=== PATIENT | female | born 1940 | race Caucasian/White ===

== ENCOUNTER 2019-06-11 10:35 | Inpatient (IN) | payer MEDICARE ==
[2019-06-11 11:12] LABS: ABSOLUTE BASOPHILS # (AUTO) 0.1 10^3/uL (0.0-0.2); ABSOLUTE EOSINOPHILS # (AUTO) 0.1 10^3/uL (0.0-0.6); ABSOLUTE LYMPHOCYTES (AUTO) 4.5 10^3/uL (0.5-4.7); ABSOLUTE MONOCYTES (AUTO) 0.6 10^3/uL (0.1-1.4); BASOPHILS % (AUTO) 0.8 % (0-2); EOSINOPHILS % (AUTO) 0.8 % (0-6); HEMOGLOBIN 9.3 g/dL (12.0-15.5); LYMPHOCYTES % (AUTO) 33.5 % (13-45); MEAN CORPUSCULAR HEMOGLOBIN 32.1 pg (27.0-33.4); MEAN CORPUSCULAR HGB CONC 34.6 g/dL (32.0-36.0); MEAN CORPUSCULAR VOLUME 93 fl (80-97); MONOCYTES % (AUTO) 4.7 % (3-13); PLATELET COUNT 201 10^3/uL (150-450); RED BLOOD COUNT 2.91 10^6/uL (3.72-5.28); RED CELL DISTRIBUTION WIDTH 13.3 % (11.5-14.0); SEGMENTED NEUTROPHILS % (AUTO) 60.2 % (42-78); TOTAL CELLS COUNTED % (AUTO) 100 %; WHITE BLOOD COUNT 13.3 10^3/uL (4.0-10.5)
[2019-06-11 11:22] LABS: ALBUMIN 3.7 g/dL (3.5-5.0); ALKALINE PHOSPHATASE 55 U/L (38-126); ANION GAP 5 (5-19); ASPARTATE AMINO TRANSFERASE 20 U/L (14-36); BILIRUBIN,DIRECT 0.3 mg/dL (0.0-0.4); BILIRUBIN,TOTAL 0.4 mg/dL (0.2-1.3); BLOOD UREA NITROGEN 52 mg/dL (7-20); CALCIUM 9.1 mg/dL (8.4-10.2); CARBON DIOXIDE 27 mmol/L (22-30); CHLORIDE 106 mmol/L (98-107); GLUCOSE 118 mg/dL (75-110); POTASSIUM 4.4 mmol/L (3.6-5.0); TOTAL PROTEIN 6.3 g/dL (6.3-8.2)
[2019-06-11 11:44] LABS: APPEARANCE,URINE CLEAR; BILIRUBIN,URINE NEGATIVE (NEGATIVE); COLOR,URINE YELLOW; GLUCOSE, URINE NEGATIVE (NEGATIVE); KETONES,URINE NEGATIVE (NEGATIVE); LEUKOCYTE ESTERASE,URINE TRACE (NEGATIVE); NITRITE,URINE NEGATIVE (NEGATIVE); PROTEIN,URINE NEGATIVE (NEGATIVE); URINE SPECIFIC GRAVITY 1.021; UROBILINOGEN,URINE NEGATIVE mg/dL (<2.0)
[2019-06-11] MEDS ORDERED: RINGERS SOLUTION,LACTATED 1,000 ML IV ONE (12:01)
[2019-06-11] MEDS ORDERED: FAMOTIDINE INJ/PF 20 MG/2 ML SDV IV ONE (12:02)
[2019-06-11] MEDS ORDERED: PANTOPRAZOLE SODIUM 40 MG VIAL IV ONE (12:02)
[2019-06-11 12:24] LABS: INTERNATIONAL RATION (INR) 0.99; PARTIAL THROMBOPLASTIN TIME 24.4 SEC (23.5-35.8); PROTHROMBIN TIME 13.1 SEC (11.4-15.4)
[2019-06-11 12:38] LABS: URINE AMPHETAMINES SCREEN NEGATIVE; URINE BARBITURATES SCREEN NEGATIVE; URINE COCAINE SCREEN NEGATIVE; URINE MARIJUANA (THC) SCREEN NEGATIVE; URINE METHADONE SCREEN NEGATIVE; URINE PHENCYCLIDINE SCREEN NEGATIVE
[2019-06-11 12:43] LABS: URINE BENZODIAZEPINES SCREEN UNCONFIRMED POSITIVE
--- NOTE | 2019-06-11 12:47 | ER Document Report ---
ED General - General Chief Complaint: Nausea/Vomiting Stated Complaint: NAUSEA/VOMITING Time Seen by Provider: 06/11/19 12:00 Mode of Arrival: Medic Information source: Patient, Relative Notes: 78-year-old female arrives from home after EMS was called because of vomiting and diarrhea and black vomitus black diarrhea according to her son. She has never had PUD or gastritis in the past. Patient points to her periumbilical area as being painful. Patient was cool and clammy upon EMS arrival. She was given 500 of lactated Ringer's in route. Her blood pressure is 121 systolic when I saw her in the room. She did not appear to be in any distress. Patient reports she had a lap 1990s with appendicitis and has a midline scar from umbilical area to her suprapubic area. This is well-healed. Patient was not witnessed to have any vomiting per EMS or staff here at the hospital. TRAVEL OUTSIDE OF THE [place] IN LAST 30 DAYS: No - HPI Onset: Yesterday Onset/Duration: Sudden, Waxing and waning Quality of pain: Achy Severity: Mild Pain Level: 1 Associated symptoms: Diarrhea, Nausea, Vomiting, Weakness - All family members son and daughter granddaughter are having upper respiratory coughing symptoms. Patient does take aspirin after having a stent placed in the . Patient does not take Aleve whenever she has headaches on a monthly basis. She last took it 2 weeks ago. Exacerbated by: Movement, Food Relieved by: Remaining still Similar symptoms previously: No Recently seen / treated by doctor: No - Related Data Allergies/Adverse Reactions: iodine Allergy (Verified 06/11/19 11:09) Penicillins Allergy (Verified 06/11/19 11:09) Home Medications: Toprol. Lisinopril. Xanax. Paroxetine. Piroxicam. Simvas tatin. ASpirin. Plavix. Levothyroxine. Detrol LA. Metoprolol Past Medical History - General Information source: Patient, Relative - Son and daughter and granddaughter in room - Social History Smoking Status: Unknown if Ever Smoked Cigarette use (# per day): No Chew tobacco use (# tins/day): No Smoking Education Provided: No Frequency of alcohol use: None Drug Abuse: None Lives with: Family Family History: Reviewed & Not Pertinent Patient has suicidal ideation: No Patient has homicidal ideation: No - Past Medical History Cardiac Medical History: Reports: Hx Coronary Artery Disease, Hx Hypercholesterolemia, Hx Hypertension Musculoskeletal Medical History: Reports Hx Arthritis Past Surgical History: Reports: Hx Abdominal Surgery, Hx Appendectomy Review of Systems - Review of Systems Constitutional: See HPI, Malaise, Weakness EENT: No symptoms reported Cardiovascular: See HPI, Dizziness, Lightheaded Respiratory: See HPI, Cough, Short of breath Gastrointestinal: See HPI, Abdominal pain, Diarrhea, Nausea, Vomiting Genitourinary: No symptoms reported Female Genitourinary: No symptoms reported Musculoskeletal: No symptoms reported Skin: No symptoms reported Hematologic/Lymphatic: No symptoms reported Neurological/Psychological: See HPI, Weakness Physical Exam - Vital signs Vitals: Resp Pulse Ox 22 H 95 06/11/19 11:00 06/11/19 11:00 Interpretation: Hypotensive - Patient had 102 systolic upon arrival - General General appearance: Alert In distress: None - HEENT Head: Normocephalic Eyes: Normal Conjunctiva: Normal Cornea: Normal Extraocular movements intact: Yes Eyelashes: Normal Pupils: PERRL Sinus: Normal Nasal: Normal Mouth/Lips: Normal Mucous membranes: Normal Pharynx: Normal Neck: Normal - Respiratory Respiratory status: No respiratory distress Chest status: Nontender Chest palpation: Normal - Cardiovascular Rhythm: Regular Heart sounds: Normal auscultation Murmur: No Friction rub: No Negra's crunch: No - Abdominal Inspection: Normal Distension: Distended Bowel sounds: Hypoactive Tenderness: Tender - Umbilical Organomegaly: No organomegaly - Rectal Tenderness: No Stool: Heme positive, Black Hemorrhoids: None - Genitourinary External exam: Normal - Extremities General upper extremity: Normal inspection General lower extremity: Normal inspection - Neurological Neuro grossly intact: Yes Cognition: Normal Orientation: AAOx4 Marielena Coma Scale Eye Opening: Spontaneous Marielena Coma Scale Verbal: Oriented Marielena Coma Scale Motor: Obeys Commands Marielena Coma Scale Total: 15 Speech: Normal Cranial nerves: Normal Cerebellar coordination: Normal Motor strength normal: LUE, RUE, LLE, RLE - Psychological Associated symptoms: Normal affect - Skin Skin Temperature: Warm Skin Moisture: Dry Skin Color: Pale Course - Vital Signs Vital signs: Temp Pulse Resp BP Pulse Ox 98.2 F 23 H 122/62 94 06/11/19 11:04 06/11/19 11:01 06/11/19 11:01 06/11/19 11:01 - Laboratory Result Diagrams: 06/11/19 10:15 06/11/19 10:15 Laboratory results interpreted by me: 06/11/19 06/11/19 06/11/19 10:15 10:15 10:15 WBC 13.3 H RBC 2.91 L Hgb 9.3 L Hct 27.0 L BUN 52 H Glucose 118 H Creatine Kinase 22 L Ur Leukocyte Esterase Urine Ascorbic Acid 06/11/19 11:17 WBC RBC Hgb Hct BUN Glucose Creatine Kinase Ur Leukocyte Esterase TRACE H Urine Ascorbic Acid 40 H - EKG Interpretation by Me EKG shows normal: Sinus rhythm Rate: Normal Critical Care Note - Critical Care Note Total time excluding time spent on procedures (mins): 90 Comments: Discussed this case with Dr. Thomas who advised calling [employer] SOFTWARE VERIFICATION ENGINEER Patt about this also is clear liquids only and then hold all n.p.o. after midnight for prepping Discharge - Discharge Clinical Impression: Anemia, GI bleeding Vomiting Qualifiers: Vomiting type: unspecified Vomiting Intractability: unspecified Nausea presence: with nausea Qualified Code(s): R11.2 - Nausea with vomiting, unspecified Abdominal pain Qualifiers: Abdominal location: periumbilical Qualified Code(s): R10.33 - Periumbilical pain Condition: Good Disposition: ADMITTED INPATIENT Admitting Provider: Martha (Hospitalist) Unit Admitted: Medical Floor Additional Instructions: Transfer this patient to floor
[2019-06-11 12:52] LABS: CREATINE KINASE MB 0.58 ng/mL (<4.55); TROPONIN I < 0.012 ng/mL
--- NOTE | 2019-06-11 13:26 | RADIOLOGY REPORT (SQ) ---
EXAM DESCRIPTION: CT ABD/PELVIS NO ORAL OR IV COMPLETED DATE/TIME: 06/11/2019 1:08 pm REASON FOR STUDY: vomiting COMPARISON: 02/10/2014. TECHNIQUE: CT scan of the abdomen and pelvis performed without intravenous or oral contrast. Images reviewed with lung, soft tissue, and bone windows. Reconstructed coronal and sagittal MPR images revi ewed. All images stored on PACS. All CT scanners at this facility use dose modulation, iterative reconstruction, and/or weight based d osing when appropriate to reduce radiation dose to as low as reasonably achievable (ALARA). [facility]: Dose Right [facility]: CareDose [facility]: Dose Right [facility]: Teradose 4D [facility]: Smart [employer] RADIATION DOSE: CT Rad equipment meets quality standard of care and radiation dose reduction techniq ues were employed. CTDIvol: 10.0 mGy. DLP: 485 mGy-cm.mGy. LIMITATIONS: None. FINDINGS: LOWER CHEST: No significant findings. No nodules or infiltrates. NON-CONTRASTED LIVER, SPLEEN, ADRENALS: Evaluation limited by lack of IV contrast. No identified sign ificant masses. PANCREAS: No masses. No peripancreatic inflammatory changes. GALLBLADDER: No identified stones by CT criteria. No inflammatory changes to suggest cholecystitis. RIGHT KIDNEY AND URETER: No suspicious masses. Assessment limited by lack of IV contrast. No signif icant calcifications. No hydronephrosis or hydroureter. LEFT KIDNEY AND URETER: No suspicious masses. Assessment limited by lack of IV contrast. No signifi cant calcifications. No hydronephrosis or hydroureter. AORTA AND RETROPERITONEUM: Heavy vascular calcifications. No aneurysm. Incidental duplicated inferi or vena cava. No retroperitoneal masses or adenopathy. BOWEL AND PERITONEAL CAVITY: No obvious masses or inflammatory changes. No free fluid. APPENDIX: Surgically absent. PELVIS, BLADDER, AND ABDOMINAL WALL:No abnormal masses. No free fluid. Bladder normal. BONES: No significant findings. Degenerative changes in the spine. OTHER: No other significant finding. IMPRESSION: NO SIGNIFICANT OR ACUTE PROCESS IN THE ABDOMEN OR PELVIS. COMMENT: Quality ID # [id number]: Final reports with documentation of one or more dose reduction techniques (e.g., Automated exposure control, adjustment of the mA and/or kV according to patient size, use of iterative reconstruction technique) TECHNICAL DOCUMENTATION: JOB ID: [id number] 2011 [employer]- All Rights Reserved Reading location - IP/workstation name: [email or web address]
--- NOTE | 2019-06-11 13:29 | RADIOLOGY REPORT (SQ) ---
EXAM DESCRIPTION: CHEST SINGLE VIEW COMPLETED DATE/TIME: 06/11/2019 1:13 pm REASON FOR STUDY: vomiting COMPARISON: None. EXAM PARAMETERS: NUMBER OF VIEWS: One view. TECHNIQUE: Single frontal radiographic view of the chest acquired. RADIATION DOSE: NA LIMITATIONS: None. FINDINGS: LUNGS AND PLEURA: No opacities, masses or pneumothorax. No pleural effusion. MEDIASTINUM AND HILAR STRUCTURES: No masses. Contour normal. HEART AND VASCULAR STRUCTURES: Heart normal in size. Normal vasculature. BONES: No acute findings. HARDWARE: None in the chest. OTHER: No other significant finding. IMPRESSION: NO ACUTE RADIOGRAPHIC FINDING IN THE CHEST. TECHNICAL DOCUMENTATION: JOB ID: [id number] 2010 [employer]- All Rights Reserved Reading location - IP/workstation name: [email or web address]
--- NOTE | 2019-06-11 14:31 | EKG REPORT ---
SEVERITY:- BORDERLINE ECG - SINUS RHYTHM PROBABLE LEFT ATRIAL ABNORMALITY BORDERLINE T WAVE ABNORMALITIES : Confirmed by: Oliver Arellano MD 11-Jun-2019 14:30:41
[2019-06-11] MEDS ORDERED: BISACODYL 5 MG TABEC PO ONE ×2 (14:59→20:00)
[2019-06-11] MEDS ORDERED: ALBUTEROL SULFATE 0.083% NEB 2.5 MG/3 ML AMPUL NEB PRN (15:42)
[2019-06-11] MEDS ORDERED: PROMETHAZINE HCL INJ 25 MG/1 ML VIAL IV PRN (15:42)
[2019-06-11] MEDS ORDERED: ONDANSETRON HCL INJ/PF 4 MG/2 ML SDV IV PRN (15:42)
[2019-06-11] MEDS ORDERED: POLYETHYLENE GLYCOL 3350 POWDER 17 GM/1 PACKET PO ONE (16:00)
[2019-06-11] MEDS ORDERED: HYDRALAZINE HCL INJ/PF 20 MG/1 ML SDV IV PRN (16:06)
--- NOTE | 2019-06-11 16:09 | PDOC H&P ---
History of Present Illness Patient complains of: abd pain, N/V History of Present Illness: ЕЛЕНА BURDICK is a 78 year old female with a past medical history significant for hypertension, hyperlipidemia, hypothyroidism, heart stent x1 (on aspirin and Plavix), anxiety, and tobacco dependence with continuous use who presented to the emergency department today with complaint of 2 days of nausea with vomiting beginning last night and abdominal pain today. She reports coffee-ground emesis and melena noted today. No prior history of GI bleeding. Evaluation in the emergency department reveals stable vital signs, mild leukocytosis (WBCs 13.3), mild anemia with a hemoglobin of 9.3, Normal coags, chemistry significant for BUN of 52 and creatinine 0.86, benign urinalysis, positive occult stool, UDS positive for benzodiazepines (prescribed). Chest x- ray is negative for acute findings. Abdominal CT without contrast was benign. She is provided IV fluids, Pepcid, Protonix, and referred to the hospitalist service for admission and management of upper GI bleeding. Surgery has been consulted for endoscopy. Past Medical History Cardiac Medical History: Reports: Coronary Artery Disease, Hyperlipidema, Hypertension Denies: Congestive Heart Failure, Myocardial Infarction Pulmonary Medical History: Reports: None EENT Medical History: Reports: None Neurological Medical History: Reports: None Endocrine Medical History: Reports: Hypothyroidism Denies: Diabetes Mellitus Type 2 Renal/ Medical History: Reports: None Malignancy Medical History: Reports: None GI Medical History: Reports: None Musculoskeltal Medical History: Reports: Arthritis Skin Medical History: Reports: None Psychiatric Medical History: Reports: General Anxiety Disorder Traumatic Medical History: Reports: None Hematology: Reports: None Infectious Medical History: Reports: None Past Surgical History Past Surgical History: Reports: Appendectomy Social History Information Source: Patient Lives with: Family Smoking Status: Current Every Day Smoker Cigarettes Packs Per Day: 0.5 Electronic Cigarette use?: No Frequency of Alcohol Use: None Hx Recreational Drug Use: No Hx Prescription Drug Abuse: No - Advance Directive Resuscitation Status: Full Code Surrogate healthcare decision maker:: Patient's son, Josse Burdick, Family History Family History: Reviewed & Not Pertinent Parental Family History Reviewed: Yes Children Family History Reviewed: Yes Sibling(s) Family History Reviewed.: Yes Medication/Allergy Home Medications: Famotidine [Pepcid 20 mg Tablet] 20 mg PO DAILY #12 tablet 02/10/14 Ondansetron HCl [Zofran 4 mg Tablet] 1 - 2 tab PO Q4H PRN #10 tablet 02/10/14 Allergies/Adverse Reactions: iodine Allergy (Verified 06/11/19 11:09) Penicillins Allergy (Verified 06/11/19 11:09) Review of Systems Constitutional: PRESENT: fatigue. ABSENT: chills, fever(s), headache(s), weight gain, weight loss Eyes: ABSENT: visual disturbances Ears: ABSENT: hearing changes Cardiovascular: ABSENT: chest pain, dyspnea on exertion, edema, orthropnea, palpitations Respiratory: ABSENT: cough, hemoptysis Gastrointestinal: PRESENT: abdominal pain, coffee ground emesis, nausea, vomit ing. ABSENT: constipation, diarrhea, hematemesis, hematochezia Genitourinary: ABSENT: dysuria, hematuria Musculoskeletal: ABSENT: joint swelling Integumentary: ABSENT: rash, wounds Neurological: ABSENT: abnormal gait, abnormal speech, confusion, dizziness, focal weakness, syncope Psychiatric: ABSENT: anxiety, depression, homidical ideation, suicidal ideation Endocrine: ABSENT: cold intolerance, heat intolerance, polydipsia, polyuria Hematologic/Lymphatic: ABSENT: easy bleeding, easy bruising Physical Exam Vital Signs: Temp Pulse Resp BP Pulse Ox 98.2 F 23 H 122/62 94 06/11/19 11:04 06/11/19 11:01 06/11/19 11:01 06/11/19 11:01 Intake & Output 06/10/19 06/11/19 06/12/19 06:59 06:59 06:59 Intake Total 1000 Balance 1000 Weight 77.111 kg General appearance: PRESENT: no acute distress, cooperative, well-developed, well-nourished Head exam: PRESENT: atraumatic, normocephalic Eye exam: PRESENT: conjunctiva pink, EOMI, PERRLA. ABSENT: scleral icterus Mouth exam: PRESENT: moist, tongue midline Respiratory exam: PRESENT: clear to auscultation linh, symmetrical, unlabored. ABSENT: rales, rhonchi, wheezes Cardiovascular exam: PRESENT: RRR, +S1, +S2, systolic murmur. ABSENT: diastolic murmur, rubs Pulses: PRESENT: normal dorsalis pedis pul Vascular exam: PRESENT: normal capillary refill GI/Abdominal exam: PRESENT: hypoactive bowel sounds, soft. ABSENT: distended, guarding, mass, organolmegaly, rebound, tenderness Rectal exam: PRESENT: heme (+) stool Extremities exam: PRESENT: full ROM. ABSENT: calf tenderness, clubbing, pedal edema Musculoskeletal exam: PRESENT: ambulatory Neurological exam: PRESENT: alert, awake, oriented to person, oriented to place, oriented to time, oriented to situation, CN II-XII grossly intact. ABSENT: motor sensory deficit Psychiatric exam: PRESENT: appropriate affect, normal mood. ABSENT: homicidal ideation, suicidal ideation Skin exam: PRESENT: dry, intact, warm. ABSENT: cyanosis, rash Results Laboratory Results: 06/11/19 10:15 06/11/19 10:15 06/11/19 06/11/19 06/11/19 10:15 10:15 10:15 WBC 13.3 H RBC 2.91 L Hgb 9.3 L Hct 27.0 L MCV 93 MCH 32.1 MCHC 34.6 RDW 13.3 Plt Count 201 Seg Neutrophils % 60.2 Sodium 138.3 Cancelled Potassium 4.4 Cancelled Chloride 106 Cancelled Carbon Dioxide 27 Cancelled Anion Gap 5 Cancelled BUN 52 H Cancelled Creatinine 0.86 Cancelled Est GFR ( Amer) > 60 Cancelled Est GFR (Non-Af Amer) Cancelled Glucose 118 H Cancelled Calcium 9.1 Cancelled Total Bilirubin 0.4 Cancelled AST 20 Cancelled Alkaline Phosphatase 55 Cancelled Total Protein 6.3 Cancelled Albumin 3.7 Cancelled Lipase 39.6 Urine Color Urine Appearance Urine pH Ur Specific Glendo Urine Protein Urine Glucose (UA) Urine Ketones Urine Blood Urine Nitrite Ur Leukocyte Esterase Urine WBC (Auto) Urine RBC (Auto) 06/11/19 11:17 WBC RBC Hgb Hct MCV MCH MCHC RDW Plt Count Seg Neutrophils % Sodium Potassium Chloride Carbon Dioxide Anion Gap BUN Creatinine Est GFR ( Amer) Est GFR (Non-Af Amer) Glucose Calcium Total Bilirubin AST Alkaline Phosphatase Total Protein Albumin Lipase Urine Color YELLOW Urine Appearance CLEAR Urine pH 6.0 Ur Specific Glendo 1.021 Urine Protein NEGATIVE Urine Glucose (UA) NEGATIVE Urine Ketones NEGATIVE Urine Blood NEGATIVE Urine Nitrite NEGATIVE Ur Leukocyte Esterase TRACE H Urine WBC (Auto) 3 Urine RBC (Auto) 1 06/11/19 06/11/19 10:15 10:15 Creatine Kinase 22 L CK-MB (CK-2) 0.58 Troponin I < 0.012 Impressions: Chest X-Ray 06/11/19 12:03 IMPRESSION: NO ACUTE RADIOGRAPHIC FINDING IN THE CHEST. Abdomen/Pelvis CT 06/11/19 12:41 IMPRESSION: NO SIGNIFICANT OR ACUTE PROCESS IN THE ABDOMEN OR PELVIS. Assessment and Plan - Diagnosis (1) GI bleeding Qualifiers: GI bleed type/associated pathology: unspecified gastrointestinal hemorrhage type Qualified Code(s): K92.2 - Gastrointestinal hemorrhage, unspecified Is this a current diagnosis for this admission?: Yes Plan: Likely upper GI bleed as patient reports black emesis. Patient is placed on clear liquids, n.p.o. after midnight. Surgery is consulted for endoscopy. Bowel prep per their discretion. IV Protonix twice daily. IV fluids. Antiemetics as needed. (2) Anemia Is this a current diagnosis for this admission?: Yes Plan: Acute blood loss anemia secondary to upper GI bleed. Hemoglobin 9.3. Evaluation of and management of GI bleed as above. Serial CBCs. Transfuse as necessary. (3) HTN (hypertension) Is this a current diagnosis for this admission?: Yes Plan: Currently NPO IV hydralazine as needed for blood pressure control. Resume home medication regiment once reconciled. (4) Anxiety Is this a current diagnosis for this admission?: Yes Plan: Continue home medication regiment (5) Hypothyroid Is this a current diagnosis for this admission?: Yes Plan: Continue home dose levothyroxine. (6) Tobacco dependence Is this a current diagnosis for this admission?: Yes Plan: Smoking cessation encouraged. Nicotine replacement therapies provided. - Time Time Spent with patient: 35 or more minutes Medications reviewed and adjusted accordingly: Yes Anticipated discharge: Home Within: within 48 hours
[2019-06-11 16:48] LABS: HEMATOCRIT 25.7 % (36.0-47.0); HEMOGLOBIN 8.8 g/dL (12.0-15.5); MEAN CORPUSCULAR HEMOGLOBIN 31.7 pg (27.0-33.4); MEAN CORPUSCULAR HGB CONC 34.4 g/dL (32.0-36.0); MEAN CORPUSCULAR VOLUME 92 fl (80-97); PLATELET COUNT 191 10^3/uL (150-450); RED BLOOD COUNT 2.78 10^6/uL (3.72-5.28); RED CELL DISTRIBUTION WIDTH 13.3 % (11.5-14.0); WHITE BLOOD COUNT 13.4 10^3/uL (4.0-10.5)
[2019-06-11] MEDS: NORMAL SALINE 1000 ML 1,000 ML IV PRN (17:24)
[2019-06-11] MEDS: PANTOPRAZOLE SODIUM 40 MG VIAL IV SCH (21:27)
[2019-06-11] MEDS ORDERED: KETOROLAC TROMETHAMINE INJ/PF 30 MG/1 ML SDV IV ONE (23:45)
[2019-06-11] MEDS: ZOLPIDEM TARTRATE 5 MG TABLET PO PRN (23:48)
[2019-06-12 00:26] LABS: HEMATOCRIT 22.8 % (36.0-47.0); MEAN CORPUSCULAR HGB CONC 34.5 g/dL (32.0-36.0); MEAN CORPUSCULAR VOLUME 93 fl (80-97); PLATELET COUNT 172 10^3/uL (150-450); RED BLOOD COUNT 2.46 10^6/uL (3.72-5.28); RED CELL DISTRIBUTION WIDTH 13.7 % (11.5-14.0); WHITE BLOOD COUNT 10.7 10^3/uL (4.0-10.5)
[2019-06-12 00:27] LABS: HEMOGLOBIN 7.9 g/dL (12.0-15.5)
--- NOTE | 2019-06-12 07:14 | PDOC PROGRESS REPORT ---
Subjective Progress Note for:: 06/12/19 Subjective:: This is a 78-year-old female with complaints of abdominal pain and melanotic stool. The patient's last colonoscopy was 3 months ago and was normal. This was performed in [place]. She denies chest pain, shortness of breath, fevers, chills, headache. She does report dizziness, fatigue, and malaise. Reason For Visit: UPPER GI BLEED Physical Exam Vital Signs: Temp Pulse Resp BP Pulse Ox 98.1 F 93 19 115/56 L 96 06/12/19 03:02 06/12/19 07:00 06/12/19 03:02 06/12/19 03:02 06/12/19 03:02 Intake & Output 06/11/19 06/12/19 06/13/19 06:59 06:59 06:59 Intake Total 1208 792 Output Total 700 Balance 508 792 Weight 79.1 kg General appearance: PRESENT: other - Overweight Head exam: PRESENT: atraumatic, normocephalic Eye exam: PRESENT: EOMI, PERRLA. ABSENT: scleral icterus Mouth exam: PRESENT: moist, neck supple Neck exam: ABSENT: meningismus, tenderness, thyromegaly, tracheal deviation Respiratory exam: PRESENT: unlabored. ABSENT: tachypnea Cardiovascular exam: PRESENT: RRR Pulses: PRESENT: normal radial pulses Vascular exam: ABSENT: pallor GI/Abdominal exam: PRESENT: soft. ABSENT: distended, firm, guarding, tenderness Rectal exam: PRESENT: deferred Extremities exam: ABSENT: clubbing Musculoskeletal exam: ABSENT: deformity Neurological exam: PRESENT: alert, awake, oriented to person, oriented to place, oriented to time, oriented to situation Psychiatric exam: ABSENT: agitated, anxious, depressed Focused psych exam: ABSENT: delusional Skin exam: ABSENT: cyanosis, erythema, jaundice Results Laboratory Results: 06/12/19 00:15 06/11/19 10:15 06/11/19 06/11/19 06/11/19 10:15 10:15 10:15 WBC 13.3 H RBC 2.91 L Hgb 9.3 L Hct 27.0 L MCV 93 MCH 32.1 MCHC 34.6 RDW 13.3 Plt Count 201 Seg Neutrophils % 60.2 Sodium 138.3 Cancelled Potassium 4.4 Cancelled Chloride 106 Cancelled Carbon Dioxide 27 Cancelled Anion Gap 5 Cancelled BUN 52 H Cancelled Creatinine 0.86 Cancelled Est GFR ( Amer) > 60 Cancelled Est GFR (Non-Af Amer) Cancelled Glucose 118 H Cancelled Calcium 9.1 Cancelled Total Bilirubin 0.4 Cancelled AST 20 Cancelled Alkaline Phosphatase 55 Cancelled Total Protein 6.3 Cancelled Albumin 3.7 Cancelled Lipase 39.6 Urine Color Urine Appearance Urine pH Ur Specific Hamer Urine Protein Urine Glucose (UA) Urine Ketones Urine Blood Urine Nitrite Ur Leukocyte Esterase Urine WBC (Auto) Urine RBC (Auto) 06/11/19 06/11/19 06/12/19 11:17 16:40 00:15 WBC 13.4 H 10.7 H RBC 2.78 L 2.46 L Hgb 8.8 L 7.9 L Hct 25.7 L 22.8 L MCV 92 93 MCH 31.7 32.0 MCHC 34.4 34.5 RDW 13.3 13.7 Plt Count 191 172 Seg Neutrophils % Sodium Potassium Chloride Carbon Dioxide Anion Gap BUN Creatinine Est GFR ( Amer) Est GFR (Non-Af Amer) Glucose Calcium Total Bilirubin AST Alkaline Phosphatase Total Protein Albumin Lipase Urine Color YELLOW Urine Appearance CLEAR Urine pH 6.0 Ur Specific Hamer 1.021 Urine Protein NEGATIVE Urine Glucose (UA) NEGATIVE Urine Ketones NEGATIVE Urine Blood NEGATIVE Urine Nitrite NEGATIVE Ur Leukocyte Esterase TRACE H Urine WBC (Auto) 3 Urine RBC (Auto) 1 06/11/19 06/11/19 10:15 10:15 Creatine Kinase 22 L CK-MB (CK-2) 0.58 Troponin I < 0.012 Impressions: Chest X-Ray 06/11/19 12:03 IMPRESSION: NO ACUTE RADIOGRAPHIC FINDING IN THE CHEST. Abdomen/Pelvis CT 06/11/19 12:41 IMPRESSION: NO SIGNIFICANT OR ACUTE PROCESS IN THE ABDOMEN OR PELVIS. Assessment & Plan - Diagnosis (1) Melena Is this a current diagnosis for this admission?: Yes (2) Anemia Qualifiers: Anemia type: unspecified type Qualified Code(s): D64.9 - Anemia, unspecified Is this a current diagnosis for this admission?: Yes - Time Time Spent with patient: Less than 15 minutes - Plan Summary Plan Summary: This is a 78-year-old female with melena and anemia. The patient reports that she recently had a normal colonoscopy. I have recommended EGD to rule out the source of upper GI bleeding. The patient has agreed to this. Risks/benefits discussed, informed consent obtained, and all questions answered.
[2019-06-12 08:06] LABS: HEMATOCRIT 22.7 % (36.0-47.0); MEAN CORPUSCULAR HEMOGLOBIN 31.9 pg (27.0-33.4); MEAN CORPUSCULAR HGB CONC 34.4 g/dL (32.0-36.0); MEAN CORPUSCULAR VOLUME 93 fl (80-97); PLATELET COUNT 167 10^3/uL (150-450); RED BLOOD COUNT 2.45 10^6/uL (3.72-5.28); RED CELL DISTRIBUTION WIDTH 13.3 % (11.5-14.0); WHITE BLOOD COUNT 9.5 10^3/uL (4.0-10.5)
[2019-06-12 08:09] LABS: HEMOGLOBIN 7.8 g/dL (12.0-15.5)
[2019-06-12 08:22] LABS: ALBUMIN 3.1 g/dL (3.5-5.0); ALKALINE PHOSPHATASE 45 U/L (38-126); ASPARTATE AMINO TRANSFERASE 22 U/L (14-36); BILIRUBIN,DIRECT 0.1 mg/dL (0.0-0.4); BILIRUBIN,TOTAL 0.4 mg/dL (0.2-1.3); CALCIUM 8.4 mg/dL (8.4-10.2); GLUCOSE 92 mg/dL (75-110); POTASSIUM 4.1 mmol/L (3.6-5.0); TOTAL PROTEIN 5.6 g/dL (6.3-8.2)
[2019-06-12] MEDS ORDERED: PROPOFOL INJ 200 MG/20 ML VIAL IV ONE (08:23)
[2019-06-12 08:27] LABS: CARBON DIOXIDE 25 mmol/L (22-30)
[2019-06-12 08:36] LABS: CHLORIDE 111 mmol/L (98-107)
[2019-06-12 08:40] LABS: ANION GAP 3 (5-19); BLOOD UREA NITROGEN 29 mg/dL (7-20)
--- NOTE | 2019-06-12 09:04 | Operative Report ---
Nonrecallable Operative Report DATE OF SURGERY: 06/12/19 PREOPERATIVE DIAGNOSIS: Anemia and melena. POSTOPERATIVE DIAGNOSIS: 1. Mild amount of antral gastritis. 2. Mild amount of duodenitis in the first portion. 3. Small sliding hiatal hernia. 4. Reflux esophagitis. 5. No evidence of active bleeding or old blood. OPERATION: EGD with biopsy SURGEON: MEME MANJARREZ ANESTHESIA: LMAC TISSUE REMOVED OR ALTERED: 1. Antral biopsy. 2. Duodenal biopsy (duodenal bulb). 3. Distal esophagus. COMPLICATIONS: None apparent ESTIMATED BLOOD LOSS: Minimal PROCEDURE: Indication for the procedure: This is a 78-year-old female presenting with hematemesis, melena, abdominal pain, and anemia. The patient reports that she had a normal colonoscopy 3 months ago in [place]. The patient was taken to the operating room to investigate her complaints with EGD. Procedure in detail: After informed consent was obtained, the patient was brought to the operating room and laid in the left lateral decubitus position. The endoscope was passed down the oropharynx, down the esophagus, and into the stomach. The stomach was insufflated with air. In the gastric antrum, there was found to be a mild amount of inflammation and irritation. There were tiny ulcerations, consistent with gastritis. The scope was pushed through the pylorus and into the first and second portions of the duodenum. The second portion of the duodenum was normal, however the first portion was mildly inflamed. Biopsy was taken in the first portion of the duodenum. The scope was withdrawn into the gastric antrum, where biopsy was also taken. The scope was then retroflexed in the gastric body. No large ulcerations or active bleeding was identified throughout the duodenum and stomach. On retroflexion, a small, sliding-type hiatal hernia was identified. The scope was withdrawn into the sliding hiatal hernia. There was severe reflux esophagitis present. Biopsy was taken in the distal esophagus, to rule out Shirley's. The scope was withdrawn up the remainder of the esophagus. The remainder of the esophagus was smooth in contour without masses, lesions, or other abnormalities. The scope was withdrawn out the oropharynx, and the procedure was concluded. All sponge, instrument, needle counts were correct x2. Condition: Stable.
--- NOTE | 2019-06-12 09:18 | Progress Note ---
Provider Note Provider Note: Patient with relatively normal upper endoscopy, except for mild antral gastritis. Patient reports that she had a normal colonoscopy 3 months ago. I would recommend obtaining and reviewing these results. If she is mistaken, and her colonoscopy was longer than 18 months ago or was not completely normal, she may require colonoscopy for diagnostic purposes. At this time, there is no evidence of active bleeding or history of serious bleeding in the upper gastrointestinal tract. I will add Carafate. Continue PPI. Will follow.
[2019-06-12] MEDS: NICOTINE 14 MG/24 HR PATCH.TD24 TD SCH (10:05)
[2019-06-12] MEDS: SUCRALFATE 1 GM TABLET PO SCH ×3 (10:05→21:56)
[2019-06-12] MEDS: PANTOPRAZOLE SODIUM 40 MG VIAL IV SCH ×2 (10:05→21:56)
--- NOTE | 2019-06-12 10:56 | PDOC PROGRESS REPORT ---
Subjective Progress Note for:: 06/12/19 Subjective:: ЕЛЕНА BURDICK is a 78 year old female with a past medical history significant for hypertension, hyperlipidemia, hypothyroidism, heart stent x1 (on aspirin and Plavix), anxiety, and tobacco dependence with continuous use who was admitted 06/11/2019 with anemia secondary to GI bleeding. Patient was seen on morning rounds shortly after returning from colonoscopy. H er [id number] was present. Patient reports fatigue but otherwise reports that she is feeling well. No further episodes of abdominal discomfort, nausea, or emesis. She further denies fever, chills, dizziness, chest pain, palpitations, dyspnea, orthopnea, cough. No questions or concerns at this time. No concerns per nursing. Reason For Visit: UPPER GI BLEED Physical Exam Vital Signs: Temp Pulse Resp BP Pulse Ox 98.7 F 91 18 139/63 H 99 06/12/19 09:27 06/12/19 09:27 06/12/19 09:27 06/12/19 09:27 06/12/19 09:27 Intake & Output 06/11/19 06/12/19 06/13/19 06:59 06:59 06:59 Intake Total 1208 992 Output Total 700 Balance 508 992 Weight 79.1 kg General appearance: PRESENT: no acute distress, cooperative, disheveled, well-developed, well-nourished Head exam: PRESENT: atraumatic, normocephalic Eye exam: PRESENT: conjunctiva pink, EOMI, PERRLA. ABSENT: scleral icterus Mouth exam: PRESENT: moist, tongue midline Respiratory exam: PRESENT: clear to auscultation linh, symmetrical, unlabored. ABSENT: rales, rhonchi, wheezes Cardiovascular exam: PRESENT: RRR, +S1, +S2, systolic murmur. ABSENT: diastolic murmur, rubs Vascular exam: PRESENT: normal capillary refill GI/Abdominal exam: PRESENT: soft. ABSENT: distended, guarding, mass, organolmegaly, rebound, tenderness Extremities exam: PRESENT: full ROM. ABSENT: calf tenderness, clubbing, pedal edema Neurological exam: PRESENT: alert, awake, oriented to person, oriented to place, oriented to time, oriented to situation, CN II-XII grossly intact. ABSENT: motor sensory deficit Psychiatric exam: PRESENT: appropriate affect, normal mood. ABSENT: homicidal ideation, suicidal ideation Skin exam: PRESENT: dry, intact, warm. ABSENT: cyanosis, rash Results Laboratory Results: 06/12/19 07:52 06/12/19 07:52 06/11/19 06/11/19 06/11/19 10:15 10:15 10:15 WBC 13.3 H RBC 2.91 L Hgb 9.3 L Hct 27.0 L MCV 93 MCH 32.1 MCHC 34.6 RDW 13.3 Plt Count 201 Seg Neutrophils % 60.2 Sodium 138.3 Cancelled Potassium 4.4 Cancelled Chloride 106 Cancelled Carbon Dioxide 27 Cancelled Anion Gap 5 Cancelled BUN 52 H Cancelled Creatinine 0.86 Cancelled Est GFR ( Amer) > 60 Cancelled Est GFR (Non-Af Amer) Cancelled Glucose 118 H Cancelled Calcium 9.1 Cancelled Total Bilirubin 0.4 Cancelled AST 20 Cancelled Alkaline Phosphatase 55 Cancelled Total Protein 6.3 Cancelled Albumin 3.7 Cancelled Lipase 39.6 Urine Color Urine Appearance Urine pH Ur Specific [place] Urine Protein Urine Glucose (UA) Urine Ketones Urine Blood Urine Nitrite Ur Leukocyte Esterase Urine WBC (Auto) Urine RBC (Auto) Blood Type Antibody Screen 06/11/19 06/11/19 06/12/19 11:17 16:40 00:15 WBC 13.4 H 10.7 H RBC 2.78 L 2.46 L Hgb 8.8 L 7.9 L Hct 25.7 L 22.8 L MCV 92 93 MCH 31.7 32.0 MCHC 34.4 34.5 RDW 13.3 13.7 Plt Count 191 172 Seg Neutrophils % Sodium Potassium Chloride Carbon Dioxide Anion Gap BUN Creatinine Est GFR ( Amer) Est GFR (Non-Af Amer) Glucose Calcium Total Bilirubin AST Alkaline Phosphatase Total Protein Albumin Lipase Urine Color YELLOW Urine Appearance CLEAR Urine pH 6.0 Ur Specific [place] 1.021 Urine Protein NEGATIVE Urine Glucose (UA) NEGATIVE Urine Ketones NEGATIVE Urine Blood NEGATIVE Urine Nitrite NEGATIVE Ur Leukocyte Esterase TRACE H Urine WBC (Auto) 3 Urine RBC (Auto) 1 Blood Type Antibody Screen 06/12/19 06/12/19 06/12/19 07:52 07:52 09:32 WBC 9.5 RBC 2.45 L Hgb 7.8 L Hct 22.7 L MCV 93 MCH 31.9 MCHC 34.4 RDW 13.3 Plt Count 167 Seg Neutrophils % Sodium 138.9 Potassium 4.1 Chloride 111 H Carbon Dioxide 25 Anion Gap 3 L BUN 29 H D Creatinine 0.83 Est GFR ( Amer) > 60 Est GFR (Non-Af Amer) Glucose 92 Calcium 8.4 Total Bilirubin 0.4 AST 22 Alkaline Phosphatase 45 Total Protein 5.6 L Albumin 3.1 L Lipase Urine Color Urine Appearance Urine pH Ur Specific [place] Urine Protein Urine Glucose (UA) Urine Ketones Urine Blood Urine Nitrite Ur Leukocyte Esterase Urine WBC (Auto) Urine RBC (Auto) Blood Type A POSITIVE Antibody Screen NEGATIVE 06/11/19 06/11/19 10:15 10:15 Creatine Kinase 22 L CK-MB (CK-2) 0.58 Troponin I < 0.012 Impressions: Chest X-Ray 06/11/19 12:03 IMPRESSION: NO ACUTE RADIOGRAPHIC FINDING IN THE CHEST. Abdomen/Pelvis CT 06/11/19 12:41 IMPRESSION: NO SIGNIFICANT OR ACUTE PROCESS IN THE ABDOMEN OR PELVIS. Assessment and Plan - Diagnosis (1) GI bleeding Qualifiers: GI bleed type/associated pathology: unspecified gastrointestinal hemorrhage type Qualified Code(s): K92.2 - Gastrointestinal hemorrhage, unspecified Is this a current diagnosis for this admission?: Yes Plan: Likely upper GI bleed as patient reports black emesis. Patient is admitted to the medical floor. Surgery is consulted for endoscopy. Underwent EGD today; evidence of gastritis without active bleeding. I have requested patient's medical records regarding recent colonoscopy. Advance to clear liquid diet per surgery. IV Protonix twice daily. She has been placed on Carafate AC at bedtime. IV fluids. Antiemetics as needed. (2) Anemia Qualifiers: Anemia type: unspecified type Qualified Code(s): D64.9 - Anemia, unspecified Is this a current diagnosis for this admission?: Yes Plan: Trending down. Acute blood loss anemia secondary to upper GI bleed. Hemoglobin 9.3-> 8.8-> 7.9-> 7.8 Evaluation of and management of GI bleed as above. Serial CBCs. Transfuse as necessary. Holding home dose aspirin, Plavix, piroxicam (3) HTN (hypertension) Is this a current diagnosis for this admission?: Yes Plan: Have resumed home dose lisinopril and metoprolol IV hydralazine as needed for blood pressure control. (4) Anxiety Is this a current diagnosis for this admission?: Yes Plan: Continue home medication regiment (5) Hypothyroid Is this a current diagnosis for this admission?: Yes Plan: Continue home dose levothyroxine. (6) Tobacco dependence Is this a current diagnosis for this admission?: Yes Plan: Smoking cessation encouraged. Nicotine replacement therapies provided. - Time Time Spent with patient: 25-34 minutes Medications reviewed and adjusted accordingly: Yes Anticipated discharge: Home Within: within 48 hours
[2019-06-12] MEDS: PAROXETINE HCL 20 MG TABLET PO SCH (11:30)
[2019-06-12 14:43] LABS: HEMATOCRIT 21.5 % (36.0-47.0); MEAN CORPUSCULAR HEMOGLOBIN 32.1 pg (27.0-33.4); MEAN CORPUSCULAR HGB CONC 34.4 g/dL (32.0-36.0); MEAN CORPUSCULAR VOLUME 93 fl (80-97); PLATELET COUNT 165 10^3/uL (150-450); RED CELL DISTRIBUTION WIDTH 13.5 % (11.5-14.0); WHITE BLOOD COUNT 9.3 10^3/uL (4.0-10.5)
[2019-06-12 14:49] LABS: HEMOGLOBIN 7.4 g/dL (12.0-15.5)
[2019-06-12] MEDS ORDERED: NORMAL SALINE 250 ML IV PRN ×2 (14:51)
[2019-06-12] MEDS: NORMAL SALINE 1000 ML 1,000 ML IV PRN (19:30)
[2019-06-12] MEDS: ALPRAZOLAM 0.5 MG TABLET PO SCH (21:56)
[2019-06-12 23:22] LABS: HEMATOCRIT 24.5 % (36.0-47.0); HEMOGLOBIN 8.5 g/dL (12.0-15.5); MEAN CORPUSCULAR HEMOGLOBIN 33.8 pg (27.0-33.4); MEAN CORPUSCULAR HGB CONC 34.8 g/dL (32.0-36.0); PLATELET COUNT 160 10^3/uL (150-450); RED BLOOD COUNT 2.52 10^6/uL (3.72-5.28); RED CELL DISTRIBUTION WIDTH 13.2 % (11.5-14.0)
[2019-06-12 23:23] LABS: MEAN CORPUSCULAR VOLUME 97 fl (80-97)
[2019-06-13 05:20] LABS: HEMATOCRIT 25.3 % (36.0-47.0); HEMOGLOBIN 8.9 g/dL (12.0-15.5); MEAN CORPUSCULAR HEMOGLOBIN 34.2 pg (27.0-33.4); MEAN CORPUSCULAR HGB CONC 35.1 g/dL (32.0-36.0); MEAN CORPUSCULAR VOLUME 98 fl (80-97); PLATELET COUNT 164 10^3/uL (150-450); RED BLOOD COUNT 2.59 10^6/uL (3.72-5.28); RED CELL DISTRIBUTION WIDTH 13.8 % (11.5-14.0); WHITE BLOOD COUNT 8.8 10^3/uL (4.0-10.5)
[2019-06-13 05:43] LABS: BLOOD UREA NITROGEN 14 mg/dL (7-20); CALCIUM 8.5 mg/dL (8.4-10.2); GLUCOSE 93 mg/dL (75-110); POTASSIUM 3.9 mmol/L (3.6-5.0)
[2019-06-13 05:48] LABS: CARBON DIOXIDE 27 mmol/L (22-30); CHLORIDE 109 mmol/L (98-107)
[2019-06-13] MEDS: LEVOTHYROXINE SODIUM 0.025 MG TABLET PO SCH (05:48)
[2019-06-13] MEDS: NORMAL SALINE 1000 ML 1,000 ML IV PRN (05:49)
[2019-06-13 05:52] LABS: ANION GAP 4 (5-19)
--- NOTE | 2019-06-13 06:00 | PDOC CONSULTATION ---
Consultation Consult Date: 06/11/19 Provider Consulted: SURGICAL SURGICALIST Consult reason:: Hematemesis and anemia History of Present Illness Admission Date/PCP: 06/11/19 17:05 History of Present Illness: ЕЛЕНА BURDICK is a 78 year old female with a recent history of hematemesis, anemia, and abdominal pain. The patient is never had symptoms consistent with this before. She also has melanotic stools, per her report. The patient recently underwent colonoscopy approximately 3 months ago in her home state of [place]. She reports that it was normal. The patient reports dizziness, we akness, nausea, vomiting, and fatigue. She denies chest pain, shortness of breath, fevers, chills, headache, blurry vision. Nothing makes her symptoms better or worse. Her abdominal pain is cramping in nature, and moderate in severity. The patient denies significant NSAID use, but does report a large amount of caffeine use. She does not smoke cigarettes or take steroids. Past Medical History Cardiac Medical History: Reports: Coronary Artery Disease, Hyperlipidema, Hypertension Denies: Congestive Heart Failure, Myocardial Infarction Pulmonary Medical History: Reports: None EENT Medical History: Reports: None Neurological Medical History: Reports: None Endocrine Medical History: Reports: Hypothyroidism Denies: Diabetes Mellitus Type 2 Renal/ Medical History: Reports: None Malignancy Medical History: Reports: None GI Medical History: Reports: None Musculoskeltal Medical History: Reports: Arthritis Skin Medical History: Reports: None Psychiatric Medical History: Reports: General Anxiety Disorder Traumatic Medical History: Reports: None Hematology: Reports: None Infectious Medical History: Reports: None Past Surgical History Past Surgical History: Reports: Appendectomy, Other - Recent colonoscopy, 3 months ago in [place]. Reportedly normal. Social History Lives with: Family Smoking Status: Current Every Day Smoker Cigarettes Packs Per Day: 0.5 Electronic Cigarette use?: No Frequency of Alcohol Use: None Hx Recreational Drug Use: No Hx Prescription Drug Abuse: No - Advance Directive Resuscitation Status: Full Code Family History Family History: Reviewed & Not Pertinent Parental Family History Reviewed: Yes Children Family History Reviewed: Yes Sibling(s) Family History Reviewed.: Yes Medication/Allergy Home Medications: Alprazolam [Xanax 0.5 mg Tablet] 0.5 mg PO QHS 06/11/19 Clopidogrel Bisulfate [Plavix 75 mg Tablet] 75 mg PO DAILY 06/11/19 Levothyroxine Sodium [Synthroid 0.025 mg Tablet] 0.025 mg PO Q6AM 06/11/19 Lisinopril 20 mg PO DAILY 06/11/19 Metoprolol Succinate [Toprol Xl 50 mg Tab.sr] 50 mg PO DAILY 06/11/19 Paroxetine HCl [Paxil 20 mg Tablet] 20 mg PO DAILY 06/11/19 Piroxicam 20 mg PO DAILY 06/11/19 Simvastatin 40 mg PO QHS 06/11/19 Aspirin [Ecotrin 81 mg EC Tablet] 81 mg PO DAILY 06/12/19 B,C/Folic/Zinc/Copper Ox/Vit E [Stress B-Complex Tablet] 1 tab PO DAILY PRN 06/12/19 [place]-3/Dha/Epa/Fish Oil [Fish Oil 1,000 mg Softgel] 1,000 mg PO DAILY 06/12/19 Allergies/Adverse Reactions: iodine Allergy (Verified 06/11/19 11:09) Penicillins Allergy (Verified 06/11/19 11:09) Review of Systems Constitutional: PRESENT: fatigue. ABSENT: anorexia, chills Eyes: ABSENT: visual disturbances Ears: ABSENT: hearing changes Nose, Mouth, and Throat: ABSENT: sore throat Cardiovascular: ABSENT: chest pain Respiratory: ABSENT: cough Gastrointestinal: PRESENT: abdominal pain, hematemesis, melena, nausea, vomiting. ABSENT: hematochezia Genitourinary: ABSENT: dysuria Musculoskeletal: ABSENT: back pain Integumentary: ABSENT: diaphoresis, pruritus, rash Neurological: PRESENT: weakness. ABSENT: confusion, convulsions Psychiatric: ABSENT: anxiety Endocrine: ABSENT: cold intolerance Hematologic/Lymphatic: ABSENT: easy bleeding Physical Exam Vital Signs: Temp Pulse Resp BP Pulse Ox 98.2 F 27 H 136/72 H 96 06/11/19 11:04 06/11/19 18:01 06/11/19 18:01 06/11/19 18:01 Intake & Output 06/10/19 06/11/19 06/12/19 06:59 06:59 06:59 Intake Total 1208 Balance 1208 Weight 77.111 kg General appearance: PRESENT: no acute distress, cooperative Head exam: PRESENT: atraumatic, normocephalic Eye exam: PRESENT: EOMI, PERRLA. ABSENT: scleral icterus Mouth exam: PRESENT: moist, neck supple Neck exam: ABSENT: meningismus, tenderness, thyromegaly, tracheal deviation Respiratory exam: PRESENT: unlabored. ABSENT: tachypnea, wheezes Cardiovascular exam: ABSENT: tachycardia Pulses: PRESENT: normal radial pulses GI/Abdominal exam: PRESENT: soft. ABSENT: distended, firm, guarding, tenderness Rectal exam: PRESENT: deferred Extremities exam: ABSENT: clubbing Musculoskeletal exam: ABSENT: deformity Neurological exam: PRESENT: alert, awake, oriented to person, oriented to place, oriented to time, oriented to situation, CN II-XII grossly intact Psychiatric exam: PRESENT: depressed. ABSENT: agitated, anxious Focused psych exam: ABSENT: delusional Skin exam: ABSENT: cyanosis, erythema, jaundice Results Laboratory Results: 06/11/19 16:40 06/11/19 10:15 06/11/19 06/11/19 06/11/19 10:15 10:15 10:15 WBC 13.3 H RBC 2.91 L Hgb 9.3 L Hct 27.0 L MCV 93 MCH 32.1 MCHC 34.6 RDW 13.3 Plt Count 201 Seg Neutrophils % 60.2 Sodium 138.3 Cancelled Potassium 4.4 Cancelled Chloride 106 Cancelled Carbon Dioxide 27 Cancelled Anion Gap 5 Cancelled BUN 52 H Cancelled Creatinine 0.86 Cancelled Est GFR ( Amer) > 60 Cancelled Est GFR (Non-Af Amer) Cancelled Glucose 118 H Cancelled Calcium 9.1 Cancelled Total Bilirubin 0.4 Cancelled AST 20 Cancelled Alkaline Phosphatase 55 Cancelled Total Protein 6.3 Cancelled Albumin 3.7 Cancelled Lipase 39.6 Urine Color Urine Appearance Urine pH Ur Specific [place] Urine Protein Urine Glucose (UA) Urine Ketones Urine Blood Urine Nitrite Ur Leukocyte Esterase Urine WBC (Auto) Urine RBC (Auto) 06/11/19 06/11/19 11:17 16:40 WBC 13.4 H RBC 2.78 L Hgb 8.8 L Hct 25.7 L MCV 92 MCH 31.7 MCHC 34.4 RDW 13.3 Plt Count 191 Seg Neutrophils % Sodium Potassium Chloride Carbon Dioxide Anion Gap BUN Creatinine Est GFR ( Amer) Est GFR (Non-Af Amer) Glucose Calcium Total Bilirubin AST Alkaline Phosphatase Total Protein Albumin Lipase Urine Color YELLOW Urine Appearance CLEAR Urine pH 6.0 Ur Specific [place] 1.021 Urine Protein NEGATIVE Urine Glucose (UA) NEGATIVE Urine Ketones NEGATIVE Urine Blood NEGATIVE Urine Nitrite NEGATIVE Ur Leukocyte Esterase TRACE H Urine WBC (Auto) 3 Urine RBC (Auto) 1 06/11/19 06/11/19 10:15 10:15 Creatine Kinase 22 L CK-MB (CK-2) 0.58 Troponin I < 0.012 Impressions: Chest X-Ray 06/11/19 12:03 IMPRESSION: NO ACUTE RADIOGRAPHIC FINDING IN THE CHEST. Abdomen/Pelvis CT 06/11/19 12:41 IMPRESSION: NO SIGNIFICANT OR ACUTE PROCESS IN THE ABDOMEN OR PELVIS. Assessment & Plan - Diagnosis (1) Anemia Qualifiers: Anemia type: unspecified type Qualified Code(s): D64.9 - Anemia, unspecified Is this a current diagnosis for this admission?: Yes (2) GI bleeding Qualifiers: GI bleed type/associated pathology: unspecified gastrointestinal hemorrhage type Qualified Code(s): K92.2 - Gastrointestinal hemorrhage, unspecified Is this a current diagnosis for this admission?: Yes - Plan Summary Plan Summary: This is a 78-year-old female with complaints of melena, hematemesis, and anemia. The patient reports that she had a normal colonoscopy 3 months ago. I will request these records. Plan for EGD tomorrow to investigate her upper gastrointestinal tract. Risks/benefits discussed, informed consent obtained, and all questions answered.
[2019-06-13] MEDS: SUCRALFATE 1 GM TABLET PO SCH ×4 (08:21→21:28)
[2019-06-13] MEDS ORDERED: (PENDING PHARMACY ID) (Omega-3/Dha/Epa/Fish Oil [Fish Oil 1,000 Mg Softgel] 1,000 MG) PO SCH (10:00)
[2019-06-13] MEDS: NICOTINE 14 MG/24 HR PATCH.TD24 TD SCH (10:26)
[2019-06-13] MEDS: METOPROLOL SUCCINATE 50 MG TAB.SR.24H PO SCH (10:28)
[2019-06-13] MEDS: OMEGA-3 ACID ETHYL ESTERS 1 GM CAPSULE PO SCH (10:29)
[2019-06-13] MEDS: PANTOPRAZOLE SODIUM 40 MG VIAL IV SCH ×2 (10:29→21:28)
[2019-06-13] MEDS: PAROXETINE HCL 20 MG TABLET PO SCH (12:00)
--- NOTE | 2019-06-13 13:50 | PDOC PROGRESS REPORT ---
Subjective Progress Note for:: 06/13/19 Subjective:: ЕЛЕНА BURDICK is a 78 year old female with a past medical history significant for hypertension, hyperlipidemia, hypothyroidism, heart stent x1 (on aspirin and Plavix), anxiety, and tobacco dependence with continuous use who was admitted 06/11/2019 with anemia secondary to GI bleeding. Patient was seen on morning rounds. She reports that she is feeling well today. Tolerating clear liquid diet well. Last bowel movement was prior to EGD; no further episodes of melena. No further episodes of abdominal discomfort, nausea, or emesis. She further denies fever, chills, dizziness, chest pain, palpitations, dyspnea, orthopnea, cough. No questions or concerns at this time. No concerns per nursing. Reason For Visit: ABLA, GI BLEED Physical Exam Vital Signs: Temp Pulse Resp BP Pulse Ox 97.7 F 80 24 H 158/84 H 98 06/13/19 11:24 06/13/19 11:24 06/13/19 11:24 06/13/19 11:24 06/13/19 11:24 Intake & Output 06/12/19 06/13/19 06/14/19 06:59 06:59 06:59 Intake Total 1208 3432 500 Output Total 700 2600 Balance 508 832 500 Weight 79.1 kg 81.2 kg General appearance: PRESENT: no acute distress, cooperative, well-developed, well-nourished Head exam: PRESENT: atraumatic, normocephalic Eye exam: PRESENT: conjunctiva pink, EOMI, PERRLA. ABSENT: scleral icterus Mouth exam: PRESENT: moist, tongue midline Respiratory exam: PRESENT: clear to auscultation linh, symmetrical, unlabored. ABSENT: rales, rhonchi, wheezes Cardiovascular exam: PRESENT: RRR, +S1, +S2, systolic murmur. ABSENT: diastolic murmur, rubs Vascular exam: PRESENT: normal capillary refill GI/Abdominal exam: PRESENT: normal bowel sounds, soft. ABSENT: distended, guarding, mass, organolmegaly, rebound, tenderness Rectal exam: PRESENT: deferred Extremities exam: PRESENT: full ROM. ABSENT: calf tenderness, clubbing, pedal edema Musculoskeletal exam: PRESENT: ambulatory Neurological exam: PRESENT: alert, awake, oriented to person, oriented to place, oriented to time, oriented to situation, CN II-XII grossly intact. ABSENT: motor sensory deficit Psychiatric exam: PRESENT: appropriate affect, normal mood. ABSENT: homicidal ideation, suicidal ideation Skin exam: PRESENT: dry, intact, warm. ABSENT: cyanosis, rash Results Laboratory Results: 06/13/19 04:36 06/13/19 04:36 06/12/19 06/12/19 06/12/19 09:32 14:20 22:49 WBC 9.3 9.0 RBC 2.30 L 2.52 L Hgb 7.4 L 8.5 L Hct 21.5 L 24.5 L MCV 93 97 D MCH 32.1 33.8 H MCHC 34.4 34.8 RDW 13.5 13.2 Plt Count 165 160 Sodium Potassium Chloride Carbon Dioxide Anion Gap BUN Creatinine Est GFR ( Amer) Glucose Calcium Blood Type A POSITIVE Antibody Screen NEGATIVE 06/13/19 06/13/19 04:36 04:36 WBC 8.8 RBC 2.59 L Hgb 8.9 L Hct 25.3 L MCV 98 H MCH 34.2 H MCHC 35.1 RDW 13.8 Plt Count 164 Sodium 139.8 Potassium 3.9 Chloride 109 H Carbon Dioxide 27 Anion Gap 4 L BUN 14 Creatinine 0.77 Est GFR ( Amer) > 60 Glucose 93 Calcium 8.5 Blood Type Antibody Screen 06/11/19 06/11/19 10:15 10:15 Creatine Kinase 22 L CK-MB (CK-2) 0.58 Troponin I < 0.012 Impressions: Chest X-Ray 06/11/19 12:03 IMPRESSION: NO ACUTE RADIOGRAPHIC FINDING IN THE CHEST. Abdomen/Pelvis CT 06/11/19 12:41 IMPRESSION: NO SIGNIFICANT OR ACUTE PROCESS IN THE ABDOMEN OR PELVIS. Assessment and Plan - Diagnosis (1) GI bleeding Qualifiers: GI bleed type/associated pathology: unspecified gastrointestinal hemorrhage type Qualified Code(s): K92.2 - Gastrointestinal hemorrhage, unspecified Is this a current diagnosis for this admission?: Yes Plan: Likely upper GI bleed as patient reports black emesis. Patient is admitted to the medical floor. Surgery is consulted for endoscopy. Underwent EGD; no evidence of gastritis without active bleeding. I have requested patient's medical records regarding recent colonoscopy. Advance to clear liquid diet. IV Protonix twice daily. She has been placed on Carafate AC at bedtime. IV fluids. Antiemetics as needed. If we have not received records by tomorrow and hemoglobin remained stable, consider discharge to home with outpatient GI follow-up. (2) Anemia Qualifiers: Anemia type: unspecified type Qualified Code(s): D64.9 - Anemia, unsp ecified Is this a current diagnosis for this admission?: Yes Plan: Acute blood loss anemia secondary to upper GI bleed. Hemoglobin 9.3-> 8.8-> 7.9-> 7.8-> 7.4-> 8.5 (s/p 1 unit PRBC)-> 8.9 Evaluation of and management of GI bleed as above. Follow-up CBC in a.m. Transfuse as necessary. Holding home dose aspirin, Plavix, piroxicam (3) HTN (hypertension) Is this a current diagnosis for this admission?: Yes Plan: Have resumed home dose lisinopril and metoprolol IV hydralazine as needed for blood pressure control. (4) Anxiety Is this a current diagnosis for this admission?: Yes Plan: Continue home medication regiment (5) Hypothyroid Is this a current diagnosis for this admission?: Yes Plan: Continue home dose levothyroxine. (6) Tobacco dependence Is this a current diagnosis for this admission?: Yes Plan: Smoking cessation encouraged. Nicotine replacement therapies provided. - Time Time Spent with patient: 15-24 minutes Medications reviewed and adjusted accordingly: Yes Anticipated discharge: Home Within: within 24 hours
--- NOTE | 2019-06-13 17:00 | PDOC PROGRESS REPORT ---
Subjective Progress Note for:: 06/13/19 Reason For Visit: ABLA, GI BLEED Patient reports no more bleeding no abdominal pain. Wants to advance her diet Physical Exam Vital Signs: Temp Pulse Resp BP Pulse Ox 98.3 F 80 12 148/80 H 95 06/13/19 16:05 06/13/19 16:05 06/13/19 16:05 06/13/19 16:05 06/13/19 16:05 Intake & Output 06/12/19 06/13/19 06/14/19 06:59 06:59 06:59 Intake Total 1208 3432 1720 Output Total 700 2600 400 Balance 468 578 4934 Weight 79.1 kg 81.2 kg General appearance: PRESENT: no acute distress GI/Abdominal exam: PRESENT: other - Soft, nontender no peritoneal signs or rigidity Results Laboratory Results: 06/13/19 04:36 06/13/19 04:36 06/12/19 06/13/19 06/13/19 22:49 04:36 04:36 WBC 9.0 8.8 RBC 2.52 L 2.59 L Hgb 8.5 L 8.9 L Hct 24.5 L 25.3 L MCV 97 D 98 H MCH 33.8 H 34.2 H MCHC 34.8 35.1 RDW 13.2 13.8 Plt Count 160 164 Sodium 139.8 Potassium 3.9 Chloride 109 H Carbon Dioxide 27 Anion Gap 4 L BUN 14 Creatinine 0.77 Est GFR ( Amer) > 60 Glucose 93 Calcium 8.5 06/11/19 06/11/19 10:15 10:15 Creatine Kinase 22 L CK-MB (CK-2) 0.58 Troponin I < 0.012 Impressions: Chest X-Ray 06/11/19 12:03 IMPRESSION: NO ACUTE RADIOGRAPHIC FINDING IN THE CHEST. Abdomen/Pelvis CT 06/11/19 12:41 IMPRESSION: NO SIGNIFICANT OR ACUTE PROCESS IN THE ABDOMEN OR PELVIS. Assessment & Plan - Diagnosis (1) GI bleeding Qualifiers: GI bleed type/associated pathology: unspecified gastrointestinal hemorrhage type Qualified Code(s): K92.2 - Gastrointestinal hemorrhage, unspecified Is this a current diagnosis for this admission?: Yes Plan: Impression: GI bleeding abated status post upper endoscopy with diagnosis of gastritis. Exact etiology of GI bleed somewhat elusive. Recommendations: 1. May advance diet as tolerated 2. We will sign off from a general surgery standpoint. Please reconsult if clinically indicated. (2) Abdominal pain Qualifiers: Abdominal location: periumbilical Qualified Code(s): R10.33 - Periumbilical pain - Time Time Spent: 30 to 50 Minutes
[2019-06-13] MEDS: ALPRAZOLAM 0.5 MG TABLET PO SCH (21:28)
[2019-06-14] MEDS: ZOLPIDEM TARTRATE 5 MG TABLET PO PRN (00:52)
[2019-06-14 05:22] LABS: HEMATOCRIT 24.8 % (36.0-47.0); HEMOGLOBIN 8.7 g/dL (12.0-15.5); MEAN CORPUSCULAR HEMOGLOBIN 34.3 pg (27.0-33.4); MEAN CORPUSCULAR HGB CONC 35.2 g/dL (32.0-36.0); MEAN CORPUSCULAR VOLUME 97 fl (80-97); PLATELET COUNT 171 10^3/uL (150-450); RED BLOOD COUNT 2.55 10^6/uL (3.72-5.28); RED CELL DISTRIBUTION WIDTH 13.7 % (11.5-14.0); WHITE BLOOD COUNT 8.3 10^3/uL (4.0-10.5)
[2019-06-14] MEDS: LEVOTHYROXINE SODIUM 0.025 MG TABLET PO SCH (06:26)
[2019-06-14] MEDS: METOPROLOL SUCCINATE 50 MG TAB.SR.24H PO SCH (09:22)
[2019-06-14] MEDS: OMEGA-3 ACID ETHYL ESTERS 1 GM CAPSULE PO SCH (09:22)
[2019-06-14] MEDS: SUCRALFATE 1 GM TABLET PO SCH ×2 (09:25→11:07)
[2019-06-14] MEDS: PANTOPRAZOLE SODIUM 40 MG VIAL IV SCH (09:25)
[2019-06-14] MEDS: NICOTINE 14 MG/24 HR PATCH.TD24 TD SCH (09:25)
[2019-06-14] MEDS: PAROXETINE HCL 20 MG TABLET PO SCH (11:08)
--- NOTE | 2019-06-14 13:09 | PDOC DISCHARGE SUMMARY ---
Impression - Admit/DC Date/PCP Admission Date/Primary Care Provider: 06/12/19 10:56 Discharge Date: 06/14/19 - Discharge Diagnosis (1) GI bleeding Is this a current diagnosis for this admission?: Yes (2) Gastritis and duodenitis Is this a current diagnosis for this admission?: Yes (3) Hiatal hernia with GERD and esophagitis Is this a current diagnosis for this admission?: Yes (4) Coronary artery disease Is this a current diagnosis for this admission?: Yes (5) Hypothyroid Is this a current diagnosis for this admission?: Yes (6) Anxiety Is this a current diagnosis for this admission?: Yes (7) Tobacco dependence due to cigarettes Is this a current diagnosis for this admission?: Yes - Additional Information Resuscitation Status: Full Code Discharge Diet: Cardiac, Other (Comments) - Please avoid caffeine, foods with a lot of acid (citrus), very spicy foods Discharge Activity: Activity As Tolerated, Slowly Increase Activity Referrals: MAGNUS BRICE MD [ACTIVE STAFF] - 06/21/19 10:30 am Prescriptions: Sucralfate [Carafate 1 gm Tablet] 1 gm PO ACHS 30 Days #120 tablet Pantoprazole Sodium [Protonix [address] Tablet] 40 mg PO QAMPM 30 Days #60 tablet.dr Home Medications: Alprazolam [Xanax 0.5 mg Tablet] 0.5 mg PO QHS 06/11/19 Clopidogrel Bisulfate [Plavix 75 mg Tablet] 75 mg PO DAILY 06/11/19 Levothyroxine Sodium [Synthroid 0.025 mg Tablet] 0.025 mg PO Q6AM 06/11/19 Lisinopril 20 mg PO DAILY 06/11/19 Metoprolol Succinate [Toprol Xl 50 mg Tab.sr] 50 mg PO DAILY 06/11/19 Paroxetine HCl [Paxil 20 mg Tablet] 20 mg PO DAILY 06/11/19 Simvastatin 40 mg PO QHS 06/11/19 Aspirin [Ecotrin 81 mg EC Tablet] 81 mg PO DAILY 06/12/19 B,C/Folic/Zinc/Copper Ox/Vit E [Stress B-Complex Tablet] 1 tab PO DAILY PRN 06/12/19 Potrero-3/Dha/Epa/Fish Oil [Fish Oil 1,000 mg Softgel] 1,000 mg PO DAILY 06/12/19 Nicotine [Nicoderm 14 mg/24 Hr Transdermal Patch] 1 each TD DAILY patch.td24 06/14/19 Pantoprazole Sodium [Protonix [address] Tablet] 40 mg PO QAMPM 30 Days #60 tablet.dr 06/14/19 Sucralfate [Carafate 1 gm Tablet] 1 gm PO ACHS 30 Days #120 tablet 06/14/19 History of Present Illiness History of Present Illness: ЕЛЕНА BURDICK is a 78 year old female with a past medical history significant for hypertension, hyperlipidemia, hypothyroidism, heart stent x1 (on aspirin and Plavix), anxiety, and tobacco dependence with continuous use who presented to the emergency department today with complaint of 2 days of nausea with vomiting beginning last night and abdominal pain today. She reports coffee-ground emesis and melena noted today. No prior history of GI bleeding. Evaluation in the emergency department reveals stable vital signs, mild leukocytosis (WBCs 13.3), mild anemia with a hemoglobin of 9.3, Normal coags, chemistry significant for BUN of 52 and creatinine 0.86, benign urinalysis, positive occult stool, UDS positive for benzodiazepines (prescribed). Chest x- ray is negative for acute findings. Abdominal CT without contrast was benign. She is provided IV fluids, Pepcid, Protonix, and referred to the hospitalist service for admission and management of upper GI bleeding. Surgery has been consulted for endoscopy. Hospital Course Hospital Course: The patient had a fairly unremarkable hospital course. She received 1 unit of packed red blood cells for her anemia related to her GI bleeding. Endoscopy revealed duodenitis, gastritis and a small hiatal hernia with esophagitis. There were small ulcerated areas on the gastric mucosa consistent with gastritis but no sage ulcer or active site of bleeding. She does have a history of coronary artery disease and her Plavix and enteric-coated aspirin are currently on hold. The likely cause of her gastritis is the piroxicam that she takes for arthritis. She has not received any nonsteroidal anti-inflammatory medications during this admission. After 1 unit of packed red blood cells her hemoglobin has been stable. She is in agreement with discharge. The patient, her [id number] and her son (on speaker by cell phone) were in agreement with the plan to discharge. They are going to arrange follow-up hopefully with Dr. Brice who is the primary care provider for the patient's son. Physical Exam Vital Signs: Temp Pulse Resp BP Pulse Ox 97.8 F 75 17 155/78 H 95 06/14/19 07:49 06/14/19 07:49 06/14/19 07:49 06/14/19 07:49 06/14/19 07:49 Intake & Output 06/13/19 06/14/19 06/15/19 06:59 06:59 06:59 Intake Total 3432 7701 Output Total 1240 4390 Balance 832 -1990 Weight 81.2 kg 80.8 kg General appearance: PRESENT: no acute distress, cooperative, well-developed Head exam: PRESENT: atraumatic, normocephalic Respiratory exam: PRESENT: clear to auscultation linh, symmetrical, unlabored. ABSENT: rales, rhonchi, tachypnea, wheezes Cardiovascular exam: PRESENT: RRR, +S1, +S2, systolic murmur - 2/6 GI/Abdominal exam: PRESENT: normal bowel sounds, soft. ABSENT: distended, guarding, tenderness Rectal exam: PRESENT: deferred Gentrourinary exam: ABSENT: indwelling catheter Extremities exam: ABSENT: pedal edema Musculoskeletal exam: PRESENT: ambulatory, normal inspection. ABSENT: deformity Neurological exam: PRESENT: alert, awake, oriented to person, oriented to place, oriented to time, oriented to situation, CN II-XII grossly intact Psychiatric exam: PRESENT: appropriate affect. ABSENT: agitated, anxious Focused psych exam: ABSENT: delusional, restlessness Skin exam: PRESENT: dry, warm. ABSENT: erythema, rash Results Laboratory Results: WBC 8.3 10^3/uL (4.0-10.5) 06/14/19 04:13 RBC 2.55 10^6/uL (3.72-5.28) L 06/14/19 04:13 Hgb 8.7 g/dL (12.0-15.5) L 06/14/19 04:13 Hct 24.8 % (36.0-47.0) L 06/14/19 04:13 MCV 97 fl (80-97) 06/14/19 04:13 MCH 34.3 pg (27.0-33.4) H 06/14/19 04:13 MCHC 35.2 g/dL (32.0-36.0) 06/14/19 04:13 RDW 13.7 % (11.5-14.0) 06/14/19 04:13 Plt Count 171 10^3/uL (150-450) 06/14/19 04:13 Lymph % (Auto) 33.5 % (13-45) 06/11/19 10:15 [place] % (Auto) 4.7 % (3-13) 06/11/19 10:15 Eos % (Auto) 0.8 % (0-6) 06/11/19 10:15 Baso % (Auto) 0.8 % (0-2) 06/11/19 10:15 Absolute Neuts (auto) 8.0 10^3/uL (1.7-8.2) 06/11/19 10:15 Absolute Lymphs (auto) 4.5 10^3/uL (0.5-4.7) 06/11/19 10:15 Absolute Monos (auto) 0.6 10^3/uL (0.1-1.4) 06/11/19 10:15 Absolute Eos (auto) 0.1 10^3/uL (0.0-0.6) 06/11/19 10:15 Absolute Basos (auto) 0.1 10^3/uL (0.0-0.2) 06/11/19 10:15 Seg Neutrophils % 60.2 % (42-78) 06/11/19 10:15 PT 13.1 SEC (11.4-15.4) 06/11/19 10:15 INR 0.99 06/11/19 10:15 APTT 24.4 SEC (23.5-35.8) 06/11/19 10:15 Sodium 139.8 mmol/L (137-145) 06/13/19 04:36 Potassium 3.9 mmol/L (3.6-5.0) 06/13/19 04:36 Chloride 109 mmol/L (98-107) H 06/13/19 04:36 Carbon Dioxide 27 mmol/L (22-30) 06/13/19 04:36 Anion Gap 4 (5-19) L 06/13/19 04:36 BUN 14 mg/dL (7-20) 06/13/19 04:36 Creatinine 0.77 mg/dL (0.52-1.25) 06/13/19 04:36 Est GFR ( Amer) > 60 (>60) 06/13/19 04:36 Est GFR (Non-Af Amer) Cancelled 06/11/19 10:15 Est GFR (MDRD) Non-Af > 60 (>60) 06/13/19 04:36 Glucose 93 mg/dL (75-110) 06/13/19 04:36 Calcium 8.5 mg/dL (8.4-10.2) 06/13/19 04:36 Total Bilirubin 0.4 mg/dL (0.2-1.3) 06/12/19 07:52 Direct Bilirubin 0.1 mg/dL (0.0-0.4) 06/12/19 07:52 Neonat Total Bilirubin Not Reportable 06/12/19 07:52 Neonat Direct Bilirubin Not Reportable 06/12/19 07:52 Neonat Indirect Bili Not Reportable 06/12/19 07:52 AST 22 U/L (14-36) 06/12/19 07:52 ALT 17 U/L (<35) 06/12/19 07:52 Alkaline Phosphatase 45 U/L (38-126) 06/12/19 07:52 Creatine Kinase 22 U/L (30-135) L 06/11/19 10:15 CK-MB (CK-2) 0.58 ng/mL (<4.55) 06/11/19 10:15 Troponin I < 0.012 ng/mL 06/11/19 10:15 Total Protein 5.6 g/dL (6.3-8.2) L 06/12/19 07:52 Albumin 3.1 g/dL (3.5-5.0) L 06/12/19 07:52 Lipase 39.6 U/L (23-300) 06/11/19 10:15 EGFR Cancelled 06/11/19 10:15 Urine Color YELLOW 06/11/19 11:17 Urine Appearance CLEAR 06/11/19 11:17 Urine pH 6.0 (5.0-9.0) 06/11/19 11:17 Ur Specific [place] 1.021 06/11/19 11:17 Urine Protein NEGATIVE mg/dL (NEGATIVE) 06/11/19 11:17 Urine Glucose (UA) NEGATIVE mg/dL (NEGATIVE) 06/11/19 11:17 Urine Ketones NEGATIVE mg/dL (NEGATIVE) 06/11/19 11:17 Urine Blood NEGATIVE (NEGATIVE) 06/11/19 11:17 Urine Nitrite NEGATIVE (NEGATIVE) 06/11/19 11:17 Urine Bilirubin NEGATIVE (NEGATIVE) 06/11/19 11:17 Urine Urobilinogen NEGATIVE mg/dL (<2.0) 06/11/19 11:17 Ur Leukocyte Esterase TRACE (NEGATIVE) H 06/11/19 11:17 Urine WBC (Auto) 3 /HPF 06/11/19 11:17 Urine RBC (Auto) 1 /HPF 06/11/19 11:17 Squamous Epi Cells Auto 2 /HPF 06/11/19 11:17 Urine Mucus (Auto) RARE /LPF 06/11/19 11:17 Urine Ascorbic Acid 40 (NEGATIVE) H 06/11/19 11:17 POC Stool Occult Blood POSITIVE (NEGATIVE) 06/11/19 14:28 Urine Opiates Screen NEGATIVE 06/11/19 11:17 Urine Methadone Screen NEGATIVE 06/11/19 11:17 Ur Barbiturates Screen NEGATIVE 06/11/19 11:17 Ur Phencyclidine Scrn NEGATIVE 06/11/19 11:17 Ur Amphetamines Screen NEGATIVE 06/11/19 11:17 U Benzodiazepines Scrn UNCONFIRMED POSITIVE 06/11/19 11:17 Urine Cocaine Screen NEGATIVE 06/11/19 11:17 U Marijuana (THC) Screen NEGATIVE 06/11/19 11:17 Blood Type A POSITIVE 06/12/19 09:32 Blood Type Confirm A POSITIVE 06/12/19 15:15 Antibody Screen NEGATIVE 06/12/19 09:32 Crossmatch See Detail 06/12/19 09:32 06/11/19 10:15 CK-MB (CK-2) 0.58 Troponin I < 0.012 Impressions: Chest X-Ray 06/11/19 12:03 IMPRESSION: NO ACUTE RADIOGRAPHIC FINDING IN THE CHEST. Abdomen/Pelvis CT 06/11/19 12:41 IMPRESSION: NO SIGNIFICANT OR ACUTE PROCESS IN THE ABDOMEN OR PELVIS. Plan Health Concerns: Recurrent bleeding-the patient will follow-up with Dr. Brice and have a repeat CBC within a week. She will stay on Carafate and Protonix twice daily for the time being. She will no longer use nonsteroidal anti-inflammatory medications. I did suggest that she resume her enteric-coated aspirin and Plavix after the weekend since she does have documented coronary artery disease. Plan of Treatment: Continue with Protonix and Carafate in addition to her baseline medications. Goals: Resolution of duodenitis, gastritis and esophagitis. The patient is under a significant amount of stress with the help of another son who lives in [place]. She believes that she will stay here visiting her son and [id number] for another 3 weeks or so and then return home. I encouraged her to sign a medical record release so that she can get a copy of all documents to bring back to her primary care provider in [place]. Time Spent: Greater than 30 Minutes Stroke Is this a Stroke Patient?: No Acute Heart Failure - Is this a Heart Failure Patient?: No
[2019-06-14 13:30] VITALS: BP 148/81
== END 2019-06-14 13:59 | disposition home or self-care (01) | DRG 378 ==
LOC: ER 10:35 → EH 17:05 → INTOOBSV 17:05 → 3N 19:45 → OBSVTOIN 06-12 10:56
PROVIDERS: ADMIT Internal Medicine; ATTEND Internal Medicine
PROC: 30233N1 Transfusion of Nonautologous Red Blood Cells into Peripheral Vein, Percutaneous Approach (ICD-10-PCS; 2019-06-12)
PROC: 0DB98ZX Excision of Duodenum, Via Natural or Artificial Opening Endoscopic, Diagnostic (ICD-10-PCS; principal; 2019-06-12 09:40)
DX: K29.81 Duodenitis with bleeding (principal); D62 Acute posthemorrhagic anemia; K29.70 Gastritis, unspecified, without bleeding; K21.0 Gastro-esophageal reflux disease with esophagitis; K44.9 Diaphragmatic hernia without obstruction or gangrene; I25.10 Atherosclerotic heart disease of native coronary artery without angina pectoris; E03.9 Hypothyroidism, unspecified; F17.210 Nicotine dependence, cigarettes, uncomplicated; I10 Essential (primary) hypertension; E78.5 Hyperlipidemia, unspecified; D72.829 Elevated white blood cell count, unspecified; M19.90 Unspecified osteoarthritis, unspecified site; T39.395A Adverse effect of other nonsteroidal anti-inflammatory drugs [NSAID], initial encounter; F41.1 Generalized anxiety disorder; E66.3 Overweight; Z79.02 Long term (current) use of antithrombotics/antiplatelets; Z79.82 Long term (current) use of aspirin; Z95.5 Presence of coronary angioplasty implant and graft; Z79.899 Other long term (current) drug therapy; Z88.0 Allergy status to penicillin; Z91.041 Radiographic dye allergy status
CPT/HCPCS: 36415; 36430; 43239; 71045; 731; 74176; 80048; 80053; 80307; 81001; 82550; 82553; 83690; 84484; 85025; 85027; 85610; 85730; 86850; 86900; 86901; 86920; 88305; 88342; 93005; 93010; 96361; 96374; 99291; 99292; C9113; G0378; J1885; J2405; J2704; J3490; J7030; J7120; P9016; S0028